=== PATIENT | male | born 1990 | race Caucasian/White ===

== ENCOUNTER 2019-12-12 01:54 | Emergency (ER) | payer SELFPAY ==
[~2019-12-12] VITALS: Ht 177.8 cm; Wt 81.8 kg
[2019-12-12] MEDS ORDERED: IBUPROFEN 400 MG TABLET PO ONE (04:30)
[2019-12-12 04:34] VITALS: BP 150/75
[2019-12-12] MEDS ORDERED: PERTUSS(ACELL),DIPH,TET VAC/PF 0.5 ML VIAL IM ONE (05:15)
== END 2019-12-12 05:30 | disposition home or self-care (01) ==
LOC: EMS 01:54
DX: S80.01XA Contusion of right knee, initial encounter (principal); S80.02XA Contusion of left knee, initial encounter; F11.90 Opioid use, unspecified, uncomplicated; F15.90 Other stimulant use, unspecified, uncomplicated; F17.210 Nicotine dependence, cigarettes, uncomplicated; W18.39XA Other fall on same level, initial encounter; Y93.89 Activity, other specified; Y92.89 Other specified places as the place of occurrence of the external cause; Y99.8 Other external cause status
CPT/HCPCS: 90471; 90715